=== PATIENT | female | born 1940 ===

== ENCOUNTER 2022-08-08 10:53 | Day surgery (SDC) | payer MEDICARE, BC ==
[~2022-08-08] VITALS: Ht 160 cm; Wt 75.3 kg
[~2022-08-08 10:53] MED LIST: ALPR.25 PO; ASPI81CH PO; Budeprion Xl300 MG; LEVSOD75 PO; Lovastatin20 MG PO; OXYB5 PO; SERT100; TRAZ50 PO
== END 2022-08-08 13:37 | disposition home or self-care (01) ==
LOC: ORSCSDS 10:53
PROVIDERS: Internal Medicine Gastroenterology
PROC: 0DBH8ZX Excision of Cecum, Via Natural or Artificial Opening Endoscopic, Diagnostic (ICD-10-PCS; principal; 2022-08-08 12:00)
DX: Z12.11 Encounter for screening for malignant neoplasm of colon (principal); D12.0 Benign neoplasm of cecum; K57.30 Diverticulosis of large intestine without perforation or abscess without bleeding; E03.9 Hypothyroidism, unspecified; I10 Essential (primary) hypertension; E78.5 Hyperlipidemia, unspecified; Z79.899 Other long term (current) drug therapy
CPT/HCPCS: 88305; J2704; J7120